=== PATIENT | female | born 1940 | race Caucasian/White ===

== ENCOUNTER 2017-01-19 15:54 | Inpatient (IN) ==
[2017-01-20] MEDS ORDERED: Nitroglycerin 0.4 MG TAB.SUBL SL PRN (13:28)
[2017-01-20] MEDS ORDERED: Budesonide/Formoterol 160/4.5 MDI IH PRN (13:28)
--- NOTE | 2017-01-20 14:04 | Internal Med History&Physical ---
Date of Encounter: 01/20/17 Time of Encounter: 14:01 Assessment and Plan (1) Hypertension Current visit: No Status: Chronic stable continue present medication Qualifiers: Hypertension type: unspecified secondary hypertension Qualified Code(s): I15.9 - Secondary hypertension, unspecified; I15 - Secondary hypertension (2) Hyperlipidemia Current visit: No Status: Chronic stable on meds Continue present meis Qualifiers: Hyperlipidemia type: unspecified Qualified Code(s): E78.5 - Hyperlipidemia , unspecified (3) Status post total knee replacement, right Current visit: Yes Status: Acute s/p Knee Replacement Stable .Rehab (4) COPD (chronic obstructive pulmonary disease) Current visit: No Status: Chronic stable uses inhalers continue no acute issues at the present time Qualifiers: COPD type: unspecified COPD Qualified Code(s): J44.9 - Chronic obstructive pulmonary disease, unspecified (5) Pacemaker Current visit: No Status: Chronic has Pacemaker no issues at the present time Internal Medicine - H&P: HPI Chief complaint: knee pain and replacment Admitted From: Hospital to Hospital Transfer History of present illness: Ms. Bonner is a 76 year old female pleasantly demented w female was transferred from [place] after right Knee replacement . She denies any other complains . She stats that she has some pain however its bearable . She couldn' t tell me that she had knee surgery and when it was done . She feels that it was done few months a go . She denies any chest pain SOB nausea vomiting or diarrhea no difficulty in urination or blood in her stool She feels quite well at the present time. She lives with her daughter who she states that also is the POA Past Med Surg Social Fam HX - Past Medical History Medical history: arthritis, COPD, coronary artery disease, dementia, hyperlipidemia, hypertension, thyroid disease Psychiatric history: no psych history - Past Surgical History Surgical History: coronary bypass (CABG), knee replacement, pacemaker/AICD - Social History Smoking Status: Former smoker Smokeless Tobacco Status: No Alcohol use: none Drug use: none - Family History Mother Living Status: Hx Family Cardiac Disorders: Yes (ND) Son Living Status: Hx Family Cardiac Disorders: Yes (ND) Internal Medicine - H&P: Meds Metoprolol [Lopressor] 25 mg PO BID 12/31/14 [History] Budesonide/Formoterol 160/4.5 [Symbicort] 1 puff IH BIDR PRN 03/26/15 [History] Clopidogrel [Plavix] 75 mg PO DAILY 03/26/15 [History] hydroCHLOROthiazide [Hydrochlorothiazide] 25 mg PO DAILY 03/26/15 [History] Amlodipine Besylate 10 mg PO DAILY 10/20/15 [History] Ginkgo Biloba 60 mg PO DAILY 10/20/15 [History] Oxybutynin [Ditropan] 5 mg PO BID 10/20/15 [History] Atorvastatin [Lipitor] 40 mg PO HS #30 tablet 10/21/15 [Rx] Isosorbide MONOnitrate (24 HR) [Imdur] 120 mg PO DAILY 365 Days 10/21/15 [Rx] Nitroglycerin [Nitrostat] 0.4 mg SL Q5M PRN #1 vial 10/21/15 [Rx] Albuterol Sulfate [Albuterol Inhaler] 1 puff IH QID PRN 12/10/15 [History] Aspirin Enteric Coated [Aspirin EC] 325 mg PO DAILY #21 tablet.dr 01/16/17 [Rx] OxyCODONE Immed Rel [Roxicodone 5 MG] 5 - 10 mg PO Q6HR PRN #40 tablet 01/16/17 [Rx] 3 Allergy/AdvReac Type Severity Reaction Status Date / Time isosorbide [From Isordil] AdvReac Rash Verified 01/17/17 13:06 All Systems PM: A 10-system review of systems was performed and is negative for pertinent findings except as documented above in the HPI. - Constitutional Constitutional: no anorexia, no chills, no fatigue, no falls, no lethargy, no malaise - EENT Eyes: no blurry vision, no change in vision, no diplopia, no discharge, no loss of vision, no pain, no photophobia Nose, mouth and throat: no dry mouth, no dysphagia, no epistaxis, no mouth pain , no nasal congestion, no post-nasal drip, no sinus pain, no sinus pressure - Cardiovascular Cardiovascular ROS IM: no chest pain, no dyspnea, no edema, no lightheadedness, no orthopnea, no palpitations, no syncope - Respiratory Respiratory: no dyspnea, no hemoptysis, no dyspnea on exertion, no wheezing, no chest congestion, no excessive phlegm production, no pain with cough - Gastrointestinal Gastrointestinal: no abdominal pain, no bloating, no change in bowel habits, no change in stool character, no constipation, no cramping, no diarrhea, no fecal incontinence, no heartburn, no hematemesis, no melena, no nausea, no vomiting - Genitourinary Genitourinary: no breast mass, no breast skin changes, no breast swelling, no menorrhagia, no nocturia, no urinary frequency Menstruation: post menopausal - Musculoskeletal Musculoskeletal ROS IM: no back pain, no muscle weakness, no myalgias, no numbness, no stiffness - Neurological Neurological ROS: no abnormal movements, no abnormal speech, no convulsions, no dizziness, no focal weakness, no headache(s), no numbness Additional comments: states her memory is not that good - Psychiatric Psychiatric: no hallucinations, no homicidal ideation, no suicidal ideation, no visual hallucinations - Constitutional Vitals: Temp Pulse Resp BP Pulse Ox 98.8 F 71 16 140/69 95 01/20/17 13:50 01/20/17 13:50 01/20/17 13:50 01/20/17 13:50 01/20/17 13:50 General appearance: Present: cooperative, A&O X 1, pleasant, no acute distress - Head Head exam: Present: atraumatic - Eye Eye exam: Present: EOMI, PERRL. Absent: scleral icterus, conjuntiva pink Pupils: Present: PERRL - ENT ENT exam: Present: normal external ear exam - Neck Neck exam general surgery: Present: supple. Absent: tenderness, nuchal rigidity - Respiratory Respiratory exam: Present: CTAB. Absent: chest wall tenderness, decreased breath sounds, respiratory distress, rhonchi, stridor, wheezes - Cardiovascular Cardiovascular exam: Present: RRR. Absent: distant heart sounds, gallop, irregular rhythm, JVD, rubs, tachycardia - GI/Abdominal GI/Abdominal exam: Present: normal bowel sounds, soft. Absent: diminished bowel sounds, distended, firm, guarding, mass, rebound - Rectal Rectal exam: Present: deferred - Extremities Exam Extremities exam: Absent: calf tenderness, full ROM, joint swelling, pedal edema , tenderness, warm - Incison Incision: Present: clean and dry, intact - Back Exam Back exam: Present: normal inspection. Absent: rash noted, tenderness, vertebral tenderness - Neurological Exam Neurological exam: Present: alert, CN II-XII intact, no focal deficits, strengths equal and symetr throughout. Absent: facial droop, speech deficit - Psychiatric Psychiatric exam: Present: normal affect, normal mood. Absent: homicidal ideation, suicidal ideation - Skin Skin exam: Present: normal color, warm. Absent: cyanosis, erythema
[2017-01-20] MEDS: *HR* OxyCODONE Immed Rel 5 MG TABLET PO PRN (22:15)
[2017-01-21 05:27] LABS: Basophils # 0.1 K/mcL (0.0-0.2); Basophils % 0.6 %; Eosinophils # 0.1 K/mcL (0.0-0.6); Eosinophils % 1.3 %; Hemoglobin 11.9 g/dL (11.5-15.4); Immature Granulocytes % 0.3 % (0-4); Lymphocytes # 2.7 K/mcL (0.6-4.6); Lymphocytes % 30.3 %; Mean Corpuscular Hemoglobin 29.5 pg (28.0-33.3); Mean Corpuscular Volume 84.2 fL (83.0-100.0); Mean Platelet Volume 9.6 fL (9.4-12.4); Monocytes # 0.7 K/mcL (0.0-1.3); Monocytes % 8.3 %; Neutrophils # 5.2 K/mcL (1.6-8.9); Platelet Count 168 K/mcL (140-400); Red Blood Count 4.04 M/mcL (3.82-4.97); Red Cell Distribution Width 12.6 % (11.5-14.5); Segmented Neutrophils % 59.2 %
[2017-01-21 05:33] LABS: INR 1.1; Prothrombin Time 12.3 Seconds (9.4-12.1)
[2017-01-21 05:36] LABS: Activated Partial Thrombo Time 26.7 Seconds (26.0-36.0)
[2017-01-21 05:44] LABS: BUN/Creatinine Ratio 12 (6-26); Blood Urea Nitrogen 9 mg/dL (7-20); Calcium 9.2 mg/dL (8.6-10.8); Carbon Dioxide 28 mEq/L (19-29); Chloride 99 mEq/L (98-109); Glucose 138 mg/dL (70-99); Osmolality,Calculated 289 (280-300); Potassium 3.1 mEq/L (3.5-4.5); Sodium 139 mEq/L (136-145); eGFR For African Americans > 60 (> 60); eGFR For Non-African Americans > 60 (> 60)
[2017-01-21] MEDS: Aspirin Enteric Coated 325 MG Tablet PO SCH (08:27)
[2017-01-21] MEDS: amLODIPine 5 MG TABLET PO SCH (08:28)
[2017-01-21] MEDS: hydroCHLOROthiazide 25 MG TABLET PO SCH (08:28)
[2017-01-21] MEDS: Isosorbide MONOnitrate (24 HR) 60 MG TAB.ER.24H PO SCH (08:28)
[2017-01-21] MEDS: *HR* OxyCODONE Immed Rel 5 MG TABLET PO PRN ×3 (08:29→22:00)
[2017-01-21] MEDS: (Ginkgo Biloba [Ginkgo Biloba] 60 MG) PO SCH (08:29)
--- NOTE | 2017-01-21 12:13 | Internal Med Progress Note ---
Date of Encounter: 01/21/17 Time of Encounter: 12:11 - Assessment and plan (1) Hypertension Current Visit: No Status: Chronic Assessment and plan: stable Continue to monitor K level mildly low will give supplement Qualifiers: Hypertension type: unspecified secondary hypertension Qualified Code(s): I15.9 - Secondary hypertension, unspecified; I15 - Secondary hypertension (2) Hyperlipidemia Current Visit: No Status: Chronic Assessment and plan: stable Qualifiers: Hyperlipidemia type: unspecified Qualified Code(s): E78.5 - Hyperlipidemia , unspecified (3) Status post total knee replacement, right Current Visit: Yes Status: Acute Assessment and plan: stable pain control on PRN meds (4) COPD (chronic obstructive pulmonary disease) Current Visit: No Status: Chronic Assessment and plan: by history on meds stable No active issues Qualifiers: COPD type: unspecified COPD Qualified Code(s): J44.9 - Chronic obstructive pulmonary disease, unspecified (5) Pacemaker Current Visit: No Status: Chronic - Subjective Interval history: doing fine no new complains Mental status same has some pain in her knee otherwise no issues - Constitutional Vitals: Temp Pulse Resp BP Pulse Ox 99 F 73 16 123/70 96 01/21/17 11:00 01/21/17 11:00 01/21/17 11:00 01/21/17 11:00 01/21/17 11:00 General appearance: Present: cooperative, A&O X 1, pleasant, no acute distress - Head Head exam: Present: atraumatic - Eye Eye exam: Present: EOMI, PERRL Pupils: Present: PERRL - ENT ENT exam: Present: mucous membranes moist - Neck Neck exam general surgery: Present: supple. Absent: tenderness, nuchal rigidity - Respiratory Respiratory exam: Present: CTAB. Absent: respiratory distress, rhonchi, stridor , wheezes, tachypnea - Cardiovascular Cardiovascular exam: Present: RRR. Absent: irregular rhythm, JVD Additional comments: no murmurs - GI/Abdominal GI/Abdominal exam: Present: normal bowel sounds, soft. Absent: distended, guarding, rebound, rigid, tenderness - Incison Incision: Present: clean and dry - Neurological Exam Neurological exam: Present: alert, no focal deficits, strengths equal and symetr throughout. Absent: facial droop, speech deficit Additional comments: oriented to self and place only otherwise no deficit Internal Medicine: Result - Labs CBC & Chem 7: 01/21/17 05:00 01/21/17 05:00 Labs: Short CBC 01/21/17 Range/Units 05:00 WBC 8.8 (4.3-11.1) K/mcL Hgb 11.9 (11.5-15.4) g/dL Hct 34.0 L (35.3-44.9) % Plt Count 168 (140-400) K/mcL Neutrophils # 5.2 (1.6-8.9) K/mcL BMP 01/21/17 05:00 Sodium 139 Potassium 3.1 L Chloride 99 Carbon Dioxide 28 BUN 9 Creatinine 0.73 Glucose 138 H Calcium 9.2 - ABG Interpretation ABG results: PT/INR, D-dimer PT 12.3 Seconds (9.4-12.1) H 01/21/17 05:00 Consult Discharge Plan - Plan Referrals: Omar Marquez DO [Primary Care Provider] -
--- NOTE | 2017-01-22 05:42 | Internal Med Progress Note ---
Date of Encounter: 01/22/17 Time of Encounter: 05:40 - Assessment and plan (1) Hypertension Current Visit: No Status: Chronic Assessment and plan: stable continue present management Qualifiers: Hypertension type: unspecified secondary hypertension Qualified Code(s): I15.9 - Secondary hypertension, unspecified; I15 - Secondary hypertension (2) Hyperlipidemia Current Visit: No Status: Chronic Assessment and plan: stable Qualifiers: Hyperlipidemia type: unspecified Qualified Code(s): E78.5 - Hyperlipidemia , unspecified (3) Status post total knee replacement, right Current Visit: Yes Status: Acute Assessment and plan: stable pain management had a fall last night no injury . Slight til bone pain today will treat symptomatically (4) COPD (chronic obstructive pulmonary disease) Current Visit: No Status: Chronic Assessment and plan: stable Qualifiers: COPD type: unspecified COPD Qualified Code(s): J44.9 - Chronic obstructive pulmonary disease, unspecified (5) Pacemaker Current Visit: No Status: Chronic - Subjective Interval history: slipped last night no injury otherwise feels fine says that tail bone has some pain today otherwise no other issues no chest pain Nausea vomiting or diarrhea pain surgical site well controlled . - Constitutional Vitals: Temp Pulse Resp BP Pulse Ox 99.0 F 71 18 124/62 95 01/22/17 03:46 01/22/17 03:46 01/22/17 03:46 01/22/17 03:46 01/22/17 03:46 General appearance: Present: cooperative, A&O X 1, pleasant, no acute distress - Eye Eye exam: Present: EOMI, PERRL Pupils: Present: PERRL - Neck Neck exam general surgery: Present: supple - Respiratory Respiratory exam: Present: CTAB. Absent: respiratory distress, rhonchi, stridor - Cardiovascular Cardiovascular exam: Present: RRR. Absent: irregular rhythm, JVD - GI/Abdominal GI/Abdominal exam: Present: normal bowel sounds, soft. Absent: pulsatile mass, rebound - Back Exam Additional comments: local pain lower back no bruise noted Internal Medicine: Result - Labs CBC & Chem 7: 01/21/17 05:00 01/21/17 05:00 Labs: BMP 01/21/17 05:00 Sodium 139 Potassium 3.1 L Chloride 99 Carbon Dioxide 28 BUN 9 Creatinine 0.73 Glucose 138 H Calcium 9.2 - ABG Interpretation ABG results: PT/INR, D-dimer PT 12.3 Seconds (9.4-12.1) H 01/21/17 05:00 Consult Discharge Plan - Plan Referrals: Omar Marquez DO [Primary Care Provider] -
[2017-01-22] MEDS: *HR* OxyCODONE Immed Rel 5 MG TABLET PO PRN (06:10)
[2017-01-22] MEDS: *HR* Enoxaparin 40 MG/0.4 ML SYRINGE SQ SCH (06:10)
[2017-01-22] MEDS: Isosorbide MONOnitrate (24 HR) 60 MG TAB.ER.24H PO SCH (08:56)
[2017-01-22] MEDS: Aspirin Enteric Coated 325 MG Tablet PO SCH (08:56)
[2017-01-22] MEDS: (Ginkgo Biloba [Ginkgo Biloba] 60 MG) PO SCH (08:56)
[2017-01-22] MEDS: hydroCHLOROthiazide 25 MG TABLET PO SCH (08:56)
[2017-01-22] MEDS: amLODIPine 5 MG TABLET PO SCH (08:56)
[2017-01-22] MEDS: Acetaminophen 325 MG TABLET PO SCH ×3 (09:06→23:19)
[2017-01-23] MEDS: *HR* Enoxaparin 40 MG/0.4 ML SYRINGE SQ SCH (05:23)
--- NOTE | 2017-01-23 08:09 | Internal Med Progress Note ---
Date of Encounter: 01/23/17 Time of Encounter: 08:07 - Assessment and plan (1) Hypertension Current Visit: No Status: Chronic Qualifiers: Hypertension type: unspecified secondary hypertension Qualified Code(s): I15.9 - Secondary hypertension, unspecified; I15 - Secondary hypertension (2) Hyperlipidemia Current Visit: No Status: Chronic Qualifiers: Hyperlipidemia type: unspecified Qualified Code(s): E78.5 - Hyperlipidemia , unspecified (3) Status post total knee replacement, right Current Visit: Yes Status: Acute (4) COPD (chronic obstructive pulmonary disease) Current Visit: No Status: Chronic Qualifiers: COPD type: unspecified COPD Qualified Code(s): J44.9 - Chronic obstructive pulmonary disease, unspecified (5) Pacemaker Current Visit: No Status: Chronic - Subjective Interval history: Overall she feels well complains of some pain in the sacral area NO Nausea vomiting .Breathing OK Overall no other complains Xray Hips negative for any fracture - Constitutional Vitals: Temp Pulse Resp BP Pulse Ox 98.3 F 67 18 112/57 97 01/22/17 19:26 01/22/17 19:26 01/22/17 19:26 01/22/17 19:26 01/22/17 19:26 General appearance: Present: cooperative, A&O X 1, pleasant, no acute distress - Head Head exam: Present: atraumatic - Eye Eye exam: Present: EOMI, PERRL - Neck Neck exam general surgery: Present: supple. Absent: tenderness, nuchal rigidity - Respiratory Respiratory exam: Present: CTAB. Absent: chest wall tenderness, respiratory distress, rhonchi, stridor, wheezes Additional comments: Breathing air equally both side no Wheeze - Cardiovascular Cardiovascular exam: Present: RRR. Absent: irregular rhythm, JVD, systolic murmur - GI/Abdominal GI/Abdominal exam: Present: normal bowel sounds, soft. Absent: distended, guarding, rigid - Extremities Exam Extremities exam: Absent: pedal edema, tenderness - Incison Incision: Present: clean and dry - Back Exam Back exam: Present: vertebral tenderness Additional comments: local tenderness noted at the sacrum area , no bruise of sign of any trauma . No spasm - Neurological Exam Additional comments: No new change , Pleasantly demented No focal deficit. Internal Medicine: Result - Labs CBC & Chem 7: 01/21/17 05:00 01/21/17 05:00 - ABG Interpretation ABG results: PT/INR, D-dimer PT 12.3 Seconds (9.4-12.1) H 01/21/17 05:00 - Impressions Impressions Hip/Pelvis X-Ray 01/22/17 08:19 IMPRESSION: Bony irregularity at the left pubic body, likely related to chronic changes. Subtle acute nondisplaced fracture is less likely but difficult to exclude. No evidence of acute fracture or dislocation of the bilateral hips. D/ / Peña Crowder MD / Peña Crowder MD Interpreting Provider: Peña Crowder MD Consult Discharge Plan - Plan Referrals: Omar Marquez DO [Primary Care Provider] -
[2017-01-23] MEDS: Acetaminophen 325 MG TABLET PO SCH ×2 (09:05→16:04)
[2017-01-23] MEDS: hydroCHLOROthiazide 25 MG TABLET PO SCH (09:06)
[2017-01-23] MEDS: Isosorbide MONOnitrate (24 HR) 60 MG TAB.ER.24H PO SCH (09:06)
[2017-01-23] MEDS: Aspirin Enteric Coated 325 MG Tablet PO SCH (09:06)
[2017-01-23] MEDS: amLODIPine 5 MG TABLET PO SCH (09:06)
[2017-01-23] MEDS: (Ginkgo Biloba [Ginkgo Biloba] 60 MG) PO SCH (09:07)
[2017-01-24] MEDS: Acetaminophen 325 MG TABLET PO SCH ×2 (00:06→11:23)
[2017-01-24] MEDS: *HR* Enoxaparin 40 MG/0.4 ML SYRINGE SQ SCH (04:49)
[2017-01-24 05:45] LABS: Basophils # 0.1 K/mcL (0.0-0.2); Basophils % 0.9 %; Eosinophils # 0.2 K/mcL (0.0-0.6); Eosinophils % 4.5 %; Hematocrit 31.5 % (35.3-44.9); Immature Granulocytes % 0.6 % (0-4); Lymphocytes # 1.6 K/mcL (0.6-4.6); Lymphocytes % 28.9 %; Mean Corpuscular HGB Conc 34.9 g/dL (31.6-35.5); Mean Corpuscular Hemoglobin 29.5 pg (28.0-33.3); Mean Corpuscular Volume 84.5 fL (83.0-100.0); Mean Platelet Volume 10.2 fL (9.4-12.4); Monocytes # 0.5 K/mcL (0.0-1.3); Monocytes % 8.8 %; Platelet Count 196 K/mcL (140-400); Red Blood Count 3.73 M/mcL (3.82-4.97); Red Cell Distribution Width 12.8 % (11.5-14.5); Segmented Neutrophils % 56.3 %
[2017-01-24 05:58] LABS: BUN/Creatinine Ratio 16 (6-26); Blood Urea Nitrogen 12 mg/dL (7-20); Calcium 9.2 mg/dL (8.6-10.8); Carbon Dioxide 27 mEq/L (19-29); Chloride 100 mEq/L (98-109); Glucose 143 mg/dL (70-99); Osmolality,Calculated 288 (280-300); Sodium 138 mEq/L (136-145); eGFR For African Americans > 60 (> 60); eGFR For Non-African Americans > 60 (> 60)
--- NOTE | 2017-01-24 08:01 | Internal Med Progress Note ---
Date of Encounter: 01/24/17 Time of Encounter: 07:59 - Assessment and plan (1) Hypertension Current Visit: No Status: Chronic Assessment and plan: stable . Continue resent mediations Qualifiers: Hypertension type: unspecified secondary hypertension Qualified Code(s): I15.9 - Secondary hypertension, unspecified; I15 - Secondary hypertension (2) Hyperlipidemia Current Visit: No Status: Chronic Assessment and plan: stable no new change continue present treatment Qualifiers: Hyperlipidemia type: unspecified Qualified Code(s): E78.5 - Hyperlipidemia , unspecified (3) Status post total knee replacement, right Current Visit: Yes Status: Acute Assessment and plan: stable getting rehab . wants to go home . She lives with her daughter (4) COPD (chronic obstructive pulmonary disease) Current Visit: No Status: Chronic Assessment and plan: stable no new change breathing is baseline Qualifiers: COPD type: unspecified COPD Qualified Code(s): J44.9 - Chronic obstructive pulmonary disease, unspecified (5) Pacemaker Current Visit: No Status: Chronic (6) Hypokalemia Current Visit: Yes Status: Acute Assessment and plan: K level is low . will supplement increase food high in K , bananas, cereals etc Mg levels ordered - Subjective Interval history: No new ssues eating well .pain is well controlled overall doing fine . - Constitutional Vitals: Temp Pulse Resp BP Pulse Ox 98.0 F 66 16 144/73 97 01/24/17 07:09 01/24/17 07:09 01/24/17 07:09 01/24/17 07:09 01/24/17 07:09 General appearance: Present: cooperative, A&O X 1, pleasant, no acute distress - Head Head exam: Present: atraumatic - Eye Eye exam: Present: EOMI, PERRL Pupils: Present: PERRL - Neck Neck exam general surgery: Present: supple. Absent: nuchal rigidity, thyromegaly - Respiratory Respiratory exam: Present: CTAB. Absent: rales, respiratory distress, rhonchi, stridor, wheezes, tachypnea - Cardiovascular Cardiovascular exam: Present: RRR, +S1, +S2. Absent: irregular rhythm, JVD - GI/Abdominal GI/Abdominal exam: Present: normal bowel sounds, soft. Absent: guarding, hepatomegaly, pulsatile mass, rebound, splenomegaly - Extremities Exam Extremities exam: Absent: pedal edema, tenderness - Incison Incision: Present: clean and dry, intact. Absent: draining, erythema - Back Exam Back exam: Present: tenderness Additional comments: local at the sacral area - Neurological Exam Neurological exam: Present: alert, CN II-XII intact, no focal deficits, strengths equal and symetr throughout. Absent: oriented X3, facial droop, speech deficit Additional comments: Pleasantly demented otherwise no focal neurological deficit Internal Medicine: Result - Labs CBC & Chem 7: 01/24/17 05:25 01/24/17 05:25 Labs: Short CBC 01/24/17 Range/Units 05:25 WBC 5.4 (4.3-11.1) K/mcL Hgb 11.0 L (11.5-15.4) g/dL Hct 31.5 L (35.3-44.9) % Plt Count 196 (140-400) K/mcL Neutrophils # 3.0 (1.6-8.9) K/mcL BMP 01/24/17 05:25 Sodium 138 Potassium 3.0 L Chloride 100 Carbon Dioxide 27 BUN 12 Creatinine 0.73 Glucose 143 H Calcium 9.2 - ABG Interpretation ABG results: PT/INR, D-dimer PT 12.3 Seconds (9.4-12.1) H 01/21/17 05:00 - Impressions Impressions Sacrum and Coccyx X-Ray 01/23/17 08:05 IMPRESSION: No acute traumatic injury involving the sacrum and coccyx. D/ / 01/23/2017 10:49:03 Ken Moraes MD / [facility] Interpreting Provider: Ken Moraes MD Consult Discharge Plan - Plan Referrals: Omar Marquez DO [Primary Care Provider] -
[2017-01-24] MEDS: hydroCHLOROthiazide 25 MG TABLET PO SCH (11:22)
[2017-01-24] MEDS: Aspirin Enteric Coated 325 MG Tablet PO SCH (11:23)
[2017-01-24] MEDS: amLODIPine 5 MG TABLET PO SCH (11:23)
[2017-01-24] MEDS: (Ginkgo Biloba [Ginkgo Biloba] 60 MG) PO SCH (11:23)
[2017-01-24] MEDS: Isosorbide MONOnitrate (24 HR) 60 MG TAB.ER.24H PO SCH (11:23)
[2017-01-24] MEDS: *HR* OxyCODONE Immed Rel 5 MG TABLET PO PRN ×2 (11:24→20:59)
[2017-01-25] MEDS: *HR* OxyCODONE Immed Rel 5 MG TABLET PO PRN ×3 (05:06→20:34)
[2017-01-25] MEDS: *HR* Enoxaparin 40 MG/0.4 ML SYRINGE SQ SCH (05:07)
[2017-01-25] MEDS: hydroCHLOROthiazide 25 MG TABLET PO SCH (10:25)
[2017-01-25] MEDS: amLODIPine 5 MG TABLET PO SCH (10:26)
[2017-01-25] MEDS: Aspirin Enteric Coated 325 MG Tablet PO SCH (10:26)
[2017-01-25] MEDS: (Ginkgo Biloba [Ginkgo Biloba] 60 MG) PO SCH (10:27)
[2017-01-25] MEDS: Isosorbide MONOnitrate (24 HR) 60 MG TAB.ER.24H PO SCH (10:27)
--- NOTE | 2017-01-25 13:52 | Internal Med Progress Note ---
Date of Encounter: 01/25/17 Time of Encounter: 14:00 - Assessment and plan (1) Status post total knee replacement, right Current Visit: Yes Status: Acute Assessment and plan: Here for therapy for total knee replacement - Time Spent With Patient less than 15 minutes - Subjective Interval history: Denies any problems and has no current needs doing well - Constitutional Vitals: Temp Pulse Resp BP Pulse Ox 98.2 F 60 18 137/65 96 01/25/17 07:57 01/25/17 07:57 01/25/17 07:57 01/25/17 07:57 01/25/17 07:57 General appearance: Present: cooperative, A&O X 1, pleasant, no acute distress - Head Head exam: Present: atraumatic, normal inspection, normocephalic - Neck Neck exam general surgery: Present: supple, trachea midline. Absent: lymphadenopathy - Respiratory Respiratory exam: Present: CTAB. Absent: accessory muscle use, rales, rhonchi, wheezes - Cardiovascular Cardiovascular exam: Present: RRR, +S1, +S2. Absent: diastolic murmur, gallop, rubs, systolic murmur Internal Medicine: Result - Labs CBC & Chem 7: 01/24/17 05:25 01/24/17 05:25 Labs: Labs stable. Potassium needs to be supplemented - ABG Interpretation ABG results: PT/INR, D-dimer PT 12.3 Seconds (9.4-12.1) H 01/21/17 05:00 Consult Discharge Plan - Plan Referrals: Omar Marquez DO [Primary Care Provider] -
[2017-01-26] MEDS: *HR* Enoxaparin 40 MG/0.4 ML SYRINGE SQ SCH (05:26)
[2017-01-26] MEDS: *HR* OxyCODONE Immed Rel 5 MG TABLET PO PRN (05:27)
[2017-01-26] MEDS: hydroCHLOROthiazide 25 MG TABLET PO SCH (08:29)
[2017-01-26] MEDS: amLODIPine 5 MG TABLET PO SCH (08:30)
[2017-01-26] MEDS: (Ginkgo Biloba [Ginkgo Biloba] 60 MG) PO SCH (08:30)
[2017-01-26] MEDS: Isosorbide MONOnitrate (24 HR) 60 MG TAB.ER.24H PO SCH (08:31)
[2017-01-26] MEDS: Aspirin Enteric Coated 325 MG Tablet PO SCH (08:32)
--- NOTE | 2017-01-26 12:29 | Physical Med Progress Note ---
Date of Encounter: 01/26/17 Time of Encounter: 12:27 Physical Medicine-PN: Subj Interval history: PMR PCC Note Patient admitted s/p right total knee arthroplasty. Patient has a history of dementia. She is currently set up for ADLs, patient is ambulating community distances. Patient continues to have limited knee flexion and extension. Plan for discharge to home with daughter with home health PT. Plan for discharge to home on 01/28/17. - Constitutional Vitals: Vital Signs Temp Pulse Resp BP Pulse Ox 01/26/17 07:00 98.3 F 59 15 151/84 98 01/25/17 19:27 98.4 F 66 16 153/73 97 Intake and Output 01/25/17 01/26/17 01/26/17 23:59 07:59 15:59 Intake Total 320 / 320 400 / 400 Balance 320 / 320 400 / 400 Intake: Oral 320 / 320 400 / 400 Other: Meal Dinner Percent of Meal Consumed 90% # Voids 1 1 Physical Medicine-PN: Obj Data - Labs CBC & Chem 7: 01/24/17 05:25 01/26/17 05:10 Labs: Laboratory Results - last 24 hr 01/26/17 05:10 Potassium 4.4 D - ABG Interpretation ABG results: PT/INR, D-dimer PT 12.3 Seconds (9.4-12.1) H 01/21/17 05:00 Consult Discharge Plan - Plan Referrals: Omar Marquez DO [Primary Care Provider] -
[2017-01-27] MEDS: *HR* Enoxaparin 40 MG/0.4 ML SYRINGE SQ SCH (06:10)
[2017-01-27] MEDS: Aspirin Enteric Coated 325 MG Tablet PO SCH (10:20)
[2017-01-27] MEDS: hydroCHLOROthiazide 25 MG TABLET PO SCH (10:20)
[2017-01-27] MEDS: amLODIPine 5 MG TABLET PO SCH (10:20)
[2017-01-27] MEDS: (Ginkgo Biloba [Ginkgo Biloba] 60 MG) PO SCH (10:20)
[2017-01-27] MEDS: *HR* OxyCODONE Immed Rel 5 MG TABLET PO PRN ×2 (10:32→16:19)
--- NOTE | 2017-01-27 16:24 | Internal Med Progress Note ---
Date of Encounter: 01/27/17 Time of Encounter: 14:00 - Assessment and plan (1) Status post total knee replacement, right Current Visit: Yes Status: Acute Assessment and plan: She is here for the total knee replacement on the right. And the staff is satisfied with the progress - Time Spent With Patient less than 15 minutes - Subjective Interval history: Denies any problems and has no current needs doing well - Constitutional Vitals: Temp Pulse Resp BP Pulse Ox 98.7 F 61 15 131/51 98 01/27/17 07:00 01/27/17 07:00 01/27/17 07:00 01/27/17 07:00 01/27/17 07:00 General appearance: Present: cooperative, A&O X 1, pleasant, no acute distress - Head Head exam: Present: atraumatic, normal inspection, normocephalic - Neck Neck exam general surgery: Present: supple, trachea midline. Absent: lymphadenopathy - Respiratory Respiratory exam: Present: CTAB. Absent: accessory muscle use, rales, rhonchi, wheezes - Cardiovascular Cardiovascular exam: Present: RRR, +S1, +S2. Absent: diastolic murmur, gallop, rubs, systolic murmur - Expanded Lower Extremities Exam Knee exam: Present: tenderness Internal Medicine: Result - Labs CBC & Chem 7: 01/24/17 05:25 01/26/17 05:10 Labs: Lab looks good - ABG Interpretation ABG results: PT/INR, D-dimer PT 12.3 Seconds (9.4-12.1) H 01/21/17 05:00 - VTE Documentation of Mechanical Device: Graduated compression elastic hosiery Consult Discharge Plan - Plan Referrals: Omar Marquez DO [Primary Care Provider] -
[2017-01-28] MEDS: *HR* OxyCODONE Immed Rel 5 MG TABLET PO PRN (04:19)
[2017-01-28] MEDS: *HR* Enoxaparin 40 MG/0.4 ML SYRINGE SQ SCH (04:20)
[2017-01-28 07:11] VITALS: BP 145/68
[2017-01-28] MEDS: hydroCHLOROthiazide 25 MG TABLET PO SCH (08:14)
[2017-01-28] MEDS: Aspirin Enteric Coated 325 MG Tablet PO SCH (08:14)
[2017-01-28] MEDS: amLODIPine 5 MG TABLET PO SCH (08:15)
[2017-01-28] MEDS: (Ginkgo Biloba [Ginkgo Biloba] 60 MG) PO SCH (08:15)
--- NOTE | 2017-01-28 11:08 | Discharge Summary ---
Date of Encounter: 01/28/17 Time of Encounter: 11:06 - Discharge Diagnosis (1) Status post total knee replacement, right Priority: Primary Status: Acute Comments: Patient being discharged home under home health. Has follow-up with surgeon and prescription - Discharge Medications Home Medications: Metoprolol [Lopressor] 25 mg PO BID 12/31/14 [History] Budesonide/Formoterol 160/4.5 [Symbicort] 1 puff IH BIDR PRN 03/26/15 [History] Clopidogrel [Plavix] 75 mg PO DAILY 03/26/15 [History] hydroCHLOROthiazide [Hydrochlorothiazide] 25 mg PO DAILY 03/26/15 [History] Amlodipine Besylate 10 mg PO DAILY 10/20/15 [History] Ginkgo Biloba 60 mg PO DAILY 10/20/15 [History] Oxybutynin [Ditropan] 5 mg PO BID 10/20/15 [History] Atorvastatin [Lipitor] 40 mg PO HS #30 tablet 10/21/15 [Rx] Isosorbide MONOnitrate (24 HR) [Imdur] 120 mg PO DAILY 365 Days 10/21/15 [Rx] Nitroglycerin [Nitrostat] 0.4 mg SL Q5M PRN #1 vial 10/21/15 [Rx] Albuterol Sulfate [Albuterol Inhaler] 1 puff IH QID PRN 12/10/15 [History] Aspirin Enteric Coated [Aspirin EC] 325 mg PO DAILY #21 tablet. 01/16/17 [Rx] OxyCODONE Immed Rel [Roxicodone 5 MG] 5 - 10 mg PO Q6HR PRN #40 tablet 01/16/17 [Rx] Allergies/Adverse Reactions: 3 Allergy/AdvReac Type Severity Reaction Status Date / Time isosorbide [From Isordil] AdvReac Rash Verified 01/17/17 13:06 Date of admission: 01/20/17 13:42 Primary care physician: Omar Marquez DO Consults: 01/20/17 13:33 Consult to Occupational Therapy [CONS] Routine Comment: Evaluate, develop and implement POC Reason for Consult: RTKR Consult to Physical Therapy [CONS] Routine Comment: Evaluate, develop and implement POC Reason for Consult: RTKR Consult to Recreational Therapy [CONS] Routine Comment: Evaluate, develop and implement POC Discharging clinician: Jeffery Arriaga Anticipated date of discharge: 01/28/17 - Patient Status Disposition: Home Health Service Condition: Good Functional capacity at discharge: uses cane/walker Overall status at discharge: patient is progressing back to baseline - Discharge Instructions Follow Up With: Omar Marquez DO [Primary Care Provider] - - Diet and Activity Activity: ambulate only with your walker Diet: advance to your usual diet Interval History: Total knee replacement for osteoarthritis. Hospital course: Ms. Bonner is a 76 year old female Condition is improved and is walking with her walker and will continue to receive therapy at home - Time Spent with Patient Total time spent providing and/or coordinating discharge services: Less than 30 minutes - Constitutional Vitals: Temp Pulse Resp BP Pulse Ox 98.1 F 61 18 145/68 98 01/28/17 07:10 01/28/17 07:10 01/28/17 07:10 01/28/17 07:10 01/28/17 07:10 General appearance: Present: cooperative, A&O X 1, pleasant, no acute distress - Head Head exam: Present: atraumatic, normal inspection, normocephalic - Neck Neck exam general surgery: Present: supple, trachea midline. Absent: lymphadenopathy - Respiratory Respiratory exam: Present: CTAB. Absent: accessory muscle use, rales, rhonchi, wheezes - Cardiovascular Cardiovascular exam: Present: RRR, +S1, +S2. Absent: diastolic murmur, gallop, rubs, systolic murmur - VTE Documentation of Mechanical Device: Graduated compression elastic hosiery
--- NOTE | 2017-01-28 11:12 | Physician Discharge Referral ---
Home Health/Hosp Referral Info Transfer to: Home Health Provider in Charge Post Discharge: PCP - Diagnosis (1) Status post total knee replacement, right Priority: Primary Status: Acute - Respiratory Orders Smoking Cessation: Smoking cessation has been advised. For more information, call the [place] Tobacco Quit Line at 9-813-MKLT-NOW. - Activity Activity Orders: Walker - Services Needed Following services are medically necessary services: Nursing, Physical Therapy - Transfer Medications Home Medications: Metoprolol [Lopressor] 25 mg PO BID 12/31/14 [History] Budesonide/Formoterol 160/4.5 [Symbicort] 1 puff IH BIDR PRN 03/26/15 [History] Clopidogrel [Plavix] 75 mg PO DAILY 03/26/15 [History] hydroCHLOROthiazide [Hydrochlorothiazide] 25 mg PO DAILY 03/26/15 [History] Amlodipine Besylate 10 mg PO DAILY 10/20/15 [History] Ginkgo Biloba 60 mg PO DAILY 10/20/15 [History] Oxybutynin [Ditropan] 5 mg PO BID 10/20/15 [History] Atorvastatin [Lipitor] 40 mg PO HS #30 tablet 10/21/15 [Rx] Isosorbide MONOnitrate (24 HR) [Imdur] 120 mg PO DAILY 365 Days 10/21/15 [Rx] Nitroglycerin [Nitrostat] 0.4 mg SL Q5M PRN #1 vial 10/21/15 [Rx] Albuterol Sulfate [Albuterol Inhaler] 1 puff IH QID PRN 12/10/15 [History] Aspirin Enteric Coated [Aspirin EC] 325 mg PO DAILY #21 tablet. 01/16/17 [Rx] OxyCODONE Immed Rel [Roxicodone 5 MG] 5 - 10 mg PO Q6HR PRN #40 tablet 01/16/17 [Rx] Allergies/Adverse Reactions: 3 Allergy/AdvReac Type Severity Reaction Status Date / Time isosorbide [From Isordil] AdvReac Rash Verified 01/17/17 13:06 Certification: Further, I certify that my clinical findings support that this patient is homebound (i.e. absences from home require considerable and taxing effort and are for medical reasons or samaritan services or infrequently or short duration when for other reasons) because: Homebound Reason: Patient requires assistance of a person or device to safely leave home Attestation: My signature below is to certify that this patient is under my care and that I, or nurse practitioner, or a physician's shipping assistant working with me, has a face-to -face encounter with this patient.
== END 2017-01-28 12:48 | disposition home health service (06) | DRG 561 ==
LOC: INPGRE 01-20 13:42
PROVIDERS: ADMIT Internal Medicine; ATTEND Internal Medicine